=== PATIENT | female | born 1975 | race Caucasian/White ===

== ENCOUNTER 2016-05-28 17:13 | Emergency (ER) | payer BC, OTHER ==
[~2016-05-28] VITALS: Ht 157.5 cm; Wt 66.5 kg
[2016-05-28 17:25] VITALS: Ht 157.5 cm; Wt 66.5 kg
[2016-05-28] MEDS ORDERED: SOD CHLORIDE 0.9% 1,000 ML IV ONE (19:30)
[2016-05-28 19:50] LABS: BASOPHILS % 0.3 % (0.0-2.0); EOSINOPHILS % 0.5 % (0.0-7.0); HEMOGLOBIN 10.9 g/dl (12.0-16.0); LYMPHOCYTES # 1.1 10^3/ul (0.8-2.9); LYMPHOCYTES % 13.6 % (15.0-51.0); MEAN CORPUSCULAR VOLUME 78.8 fl (82.0-101.0); MEAN PLATELET VOLUME 7.8 fl (7.4-10.4); MONOCYTE # 0.5 10^3/ul (0.3-0.9); MONOCYTES % 5.7 % (0.0-11.0); NEUTROPHIL # 6.7 10^3/ul (1.6-7.5); NEUTROPHILS % 79.9 % (39.0-77.0); PLATELET COUNT 310 10^3/UL (140-440); RED BLOOD COUNT 4.18 10^6/ul (4.20-5.40); RED CELL DISTRIBUTION WIDTH 17.2 % (11.5-14.5); UNCORRECTED WBC 8.4 10^3/ul (4.8-10.8); WHITE BLOOD COUNT 8.4 10^3/ul (4.8-10.8)
[2016-05-28 19:53] LABS: ADD UMIC YES; URINE BILIRUBIN (Dip) 1+ (NEGATIVE); URINE BLOOD (Dip) NEGATIVE (NEGATIVE); URINE COLOR YELLOW (YELLOW); URINE GLUCOSE (Dip) NEGATIVE (NEGATIVE); URINE KETONES (Dip) NEGATIVE (NEGATIVE); URINE LEUKOCYTE ESTERASE (Dip) TRACE (NEGATIVE); URINE NITRITE (Dip) POSITIVE (NEGATIVE); URINE TOTAL PROTEIN (Dip) NEGATIVE (NEGATIVE); URINE UROBILINOGEN (Dip) 2.0 E.U./dL (0.1-1.0)
[2016-05-28 19:53] LABS: CONDITION 1; LH ANALYZER COMMENTS 1
[2016-05-28 19:56] LABS: ALBUMIN 3.9 g/dl (3.3-4.9)
[2016-05-28 19:57] LABS: INR 0.9; PROTIME 12.1 Sec (12.2-14.2); PT RATIO 0.9
[2016-05-28 19:57] LABS: POTASSIUM 3.9 mmol/L (3.5-5.1)
[2016-05-28 19:58] LABS: CREATININE 0.39 mg/dl (0.44-1.00)
[2016-05-28 19:58] LABS: PARTIAL THROMBOPLASTIN TIME 30.7 Sec (25.0-35.0)
[2016-05-28 19:59] LABS: ALBUMIN/GLOBULIN RATIO 1.02; BILIRUBIN,INDIRECT 0.2 mg/dl (0-1.1); BILIRUBIN,TOTAL 0.2 mg/dl (0.2-1.3); TOTAL PROTEIN 7.7 g/dl (6.1-8.1)
[2016-05-28 20:00] LABS: CALCIUM 8.8 mg/dl (8.4-10.2)
--- NOTE | 2016-05-28 20:04 | RADRPT ---
PROCEDURE: US OB CLINICAL INDICATION: abd pain/ TECHNIQUE: Multiple sonographic images of the pelvis were obtained. The images were reviewed on a PACS workstation. COMPARISON: None FINDINGS: The cervix is closed with a length of 5.41 cm. There is a single viable intrauterine gestation. Cardiac activity is present with 150 beats per minute. There is a variable presentation. The placenta is fundal. There is no evidence for an abruption or placenta previa. There is a normal amount of amniotic fluid with a maximum vertical pocket of 4.8 cm. Measurements were made in order to determine age. The results are as follows (cm): BPD =4.73 HC =0.40 AC =15.92 FL =3.36 Estimated gestational age by ultrasound of approximately 20 weeks, 2 days. The estimated date of delivery by ultrasound is 10/13/2016. EFW = 366 grams IMPRESSION: Single viable intrauterine gestation of approximately 20 weeks, 2 days . The estimated date of delivery is 10/13/2016 . Fundal placenta without evidence for an abruption or previa. RPTAT: EE Physician Sarika Date Time Electronically viewed and signed by Physician Sarika on 05/28/2016 20:04 /
--- NOTE | 2016-05-28 20:05 | RADRPT ---
PROCEDURE: Right Upper Quadrant Ultrasound. CLINICAL INDICATION: w/ abdominal pain TECHNIQUE: Multiple real-time images were acquired of the patient's right upper quadrant abdomen a nd retroperitoneum utilizing a high resolution transducer. COMPARISON: None FINDINGS: The liver measures 14.4 cm, and demonstrates moderately increased echogenicity. The main portal vein is patent with proper directional flow. There is no intrahepatic biliary ductal dilatation. The ext rahepatic common bile duct measures 4 mm. The gallbladder is without stones, wall thickening, or pericholecystic fluid. The visualized pancreas is unremarkable. The right kidney measures 11.0 cm and demonstrates normal echotexture. There is no right renal calcu pedro or hydronephrosis. The visualized abdominal aorta and IVC are grossly unremarkable. IMPRESSION: Moderate fatty infiltration of the liver. No cholelithiasis or acute cholecystitis. Normal CBD. RPTAT: EE Physician Sarika Date Time Electronically viewed and signed by Physician Sarika on 05/28/2016 20:05 /
[2016-05-28 20:09] LABS: BACTERIA,URINE MANY; ICTOTEST POSITIVE (NEGATIVE); SQUAMOUS EPITHELIAL CELL,UR FEW; URINE RBCS 0-2 /HPF (0)
[2016-05-28 20:24] LABS: BENZODIAZEPINES Negative (NEGATIVE)
[2016-05-28 20:25] LABS: BARBITURATES Negative (NEGATIVE)
[2016-05-28] MEDS ORDERED: morphine 4 MG/ML VIAL IV STA (20:32)
[2016-05-28 20:46] LABS: CANNABINOIDS Negative (NEGATIVE); COCAINE Negative (NEGATIVE); OPIATES Negative (NEGATIVE)
[2016-05-28 21:16] LABS: CHOL/HDL RATIO 4.2 RATIO
--- NOTE | 2016-05-28 21:23 | ERA ---
ER Documentation Chief Complaint Date/Time DATE: 05/28/16 TIME: 21:22 Chief Complaint right upper abdominal pain x 2 months, dx gallstones 19wks HPI 40-year-old female , less than 0. 9/06/20 ambulatory to the ED complaining of a several day history of worsening, sharp and crampy, epigastric pain which radiates to the back. She was admitted 2 weeks ago to [facility] for pancreatitis presumably secondary to cholelithiasis. Nausea but no vomiting, diarrhea or constipation. No hematemesis or hematochezia. Denies vaginal bleeding or discharge. No dysuria, polyuria, hematuria or flank pain. No chest pain or palpitations. No shortness of breath or cough. No fevers or chills. ROS All systems reviewed and are negative except as per history of present illness. Medications Home Meds Reported Medications Multivit/Min/Fol Ac/Iron/Pren* ( S*) 1 Tab Tab, 1 TAB PO DAILY, TAB 05/28/16 Allergies Allergies: Coded Allergies: Penicillins (Verified Allergy, Unknown, Hives, 05/28/16) hives Sulfa (Sulfonamide Antibiotics) (Verified Allergy, Unknown, Hives, 05/28/16 ) Hives amoxicillin (Verified Allergy, Unknown, Rash, 05/28/16) rash cefaclor (Verified Allergy, Unknown, Rash, 05/28/16) Rash PMhx/Soc Reviewed in chart. As per HPI. History of Surgery: Yes (leep 2006) Hx Miscellaneous Medical Probl: Yes (gallstones and pancreatitis) Hx Alcohol Use: No Hx Substance Use: No Hx Tobacco Use: No Smoking Status: Never smoker FmHx No stroke or cancer Physical Exam Vitals Vital Signs Date Time Temp Pulse Resp B/P Pulse Ox O2 Delivery O2 Flow Rate FiO2 05/29/16 00:55 97.8 84 18 124/76 96 Room Air 05/28/16 23:55 89 16 116/68 98 Room Air 05/28/16 17:25 98.3 100 20 121/68 98 Physical Exam Const: Alert, moderate distress due to pain. Head: Atraumatic Eyes: Normal Conjunctiva ENT: Normal External Ears, Nose and Mouth. Neck: Full range of motion..~ No meningismus. Resp: Clear to auscultation bilaterally Cardio: Regular rate and rhythm, no murmurs Abd: Soft, gravid. Epigastric tenderness. No rebound or guarding. Negative Viera sign. Skin: No petechiae or rashes Back: No midline or flank tenderness Ext: No cyanosis, or edema Neur: Awake and alert. No focal deficit observed. Psych: Normal Mood and Affect Result Diagram: 05/28/16193605/28/161936 Results 24 hrs Laboratory Tests Test 05/28/16 19:35 05/28/16 19:37 05/28/16 19:53 Activated Partial Thromboplast Time 30.7Sec INR International Normalized Ratio 0.90 Prothrombin Time 12.1Sec Prothrombin Time Ratio 0.9 Urine Bacteria MANY Urine Bilirubin 1+ Urine Clarity CLEAR Urine Color YELLOW Urine Glucose NEGATIVE% Urine Hemoglobin NEGATIVE Urine Ictotest POSITIVE Urine Ketones NEGATIVE Urine Leukocyte Esterase TRACE Urine Microscopic RBC 0-2/HPF Urine Microscopic WBC 25-50/HPF Urine Nitrite POSITIVE Urine Specific [place] 1.025 Urine Squamous Epithelial Cells FEW Urine Total Protein NEGATIVE Urine Urobilinogen 2.0 E.U./dL Urine pH 6.5 Alanine Aminotransferase (ALT/SGPT) 66IU/L Albumin 3.9g/dl Albumin/Globulin Ratio 1.02 Alkaline Phosphatase 211IU/L Anion Gap 16 Aspartate Amino Transf (AST/SGOT) 135IU/L Basophils # 0.010^3/ul Basophils % 0.3% Beta HCG, Quantitative 15361.0mIU/ml Blood Morphology Comment Blood Urea Nitrogen 6mg/dl Calcium Level 8.8mg/dl Carbon Dioxide Level 25mmol/L Chloride Level 102mmol/L Cholesterol Level 219mg/dl Cholesterol/HDL Ratio 4.2RATIO Creatinine 0.39mg/dl Direct Bilirubin 0.00mg/dl Eosinophils # 0.010^3/ul Eosinophils % 0.5% Globulin 3.80g/dl Glucose Level 97mg/dl HDL Cholesterol 52mg/dl Hematocrit 33.0% Hemoglobin 10.9g/dl Indirect Bilirubin 0.2mg/dl LDL Cholesterol, Calculated 132mg/dl Lipase 85505R/L Lymphocytes # 1.110^3/ul Lymphocytes % 13.6% Mean Corpuscular Hemoglobin 26.0pg Mean Corpuscular Hemoglobin Concent 33.0g/dl Mean Corpuscular Volume 78.8fl Mean Platelet Volume 7.8fl Monocytes # 0.510^3/ul Monocytes % 5.7% Neutrophils # 6.710^3/ul Neutrophils % 79.9% Nucleated Red Blood Cells # 0.010^3/ul Nucleated Red Blood Cells % 0.0/100WBC Platelet Count 62054^3/UL Potassium Level 3.9mmol/L Red Blood Count 4.1810^6/ul Red Cell Distribution Width 17.2% Sodium Level 139mmol/L Total Bilirubin 0.2mg/dl Total Protein 7.7g/dl Triglycerides Level 173mg/dl White Blood Count 8.410^3/ul Urine Amphetamines Screen Negative Urine Barbiturates Negative Urine Benzodiazepines Screen Negative Urine Cannabinoids Negative Urine Cocaine Screen Negative Urine Opiates Screen Negative Current Medications Medications (Trade) Dose Ordered Sig/Amadeo Route PRN Reason Start Time Stop Time Status Last Admin Dose Admin Sodium Chloride (NS) 1,000 ml @ 1,000 mls/hr Q1H ONCE IV 05/28/16 19:30 05/28/16 20:29 DC 05/28/16 19:40 Morphine Sulfate 4 mg 4 mg ONCE STAT IV 05/28/16 20:32 05/28/16 20:33 DC 05/28/16 20:51 Sodium Chloride (NS) 1,000 ml @ 500 mls/hr Q2H STAT IV 05/28/16 23:10 05/29/16 01:00 DC 05/28/16 23:22 Morphine Sulfate 4 mg 4 mg ONCE ONCE IV 05/28/16 23:10 05/28/16 23:17 DC 05/28/16 23:22 Aztreonam (Azactam 1gm/NS (Pmx)) 50 ml @ 100 mls/hr ONCE ONCE IVPB 05/28/16 23:30 05/28/16 23:59 DC 05/28/16 23:52 Morphine Sulfate (morphine) 4 mg ONCE ONCE IV 05/29/16 00:34 05/29/16 00:35 DC 05/29/16 00:46 IMAGING: PROCEDURE: Right Upper Quadrant Ultrasound. CLINICAL INDICATION: w/ abdominal pain TECHNIQUE: Multiple real-time images were acquired of the patient's right upper quadrant abdomen and retroperitoneum utilizing a high resolution transducer. COMPARISON: None FINDINGS: The liver measures 14.4 cm, and demonstrates moderately increased echogenicity. The main portal vein is patent with proper directional flow. There is no intrahepatic biliary ductal dilatation. The extrahepatic common bile duct measures 4 mm. The gallbladder is without stones, wall thickening, or pericholecystic fluid. The visualized pancreas is unremarkable. The right kidney measures 11.0 cm and demonstrates normal echotexture. There is no right renal calculus or hydronephrosis. The visualized abdominal aorta and IVC are grossly unremarkable. IMPRESSION: Moderate fatty infiltration of the liver. No cholelithiasis or acute cholecystitis. Normal CBD. RPTAT: EE Physician Sarika Date Time Electronically viewed and signed by Physician Sarika on 05/28/2016 20:05 RA/ PROCEDURE: US OB CLINICAL INDICATION: abd pain/ TECHNIQUE: Multiple sonographic images of the pelvis were obtained. The images were reviewed on a PACS workstation. COMPARISON: None FINDINGS: The cervix is closed with a length of 5.41 cm. There is a single viable intrauterine gestation. Cardiac activity is present with 150 beats per minute. There is a variable presentation. The placenta is fundal. There is no evidence for an abruption or placenta previa. There is a normal amount of amniotic fluid with a maximum vertical pocket of 4.8 cm. Measurements were made in order to determine age. The results are as follows (cm): BPD = 4.73 HC = 0.40 AC = 15.92 FL = 3.36 Estimated gestational age by ultrasound of approximately 20 weeks, 2 days. The estimated date of delivery by ultrasound is 10/13/2016. EFW = 366 grams IMPRESSION: Single viable intrauterine gestation of approximately 20 weeks, 2 days . The estimated date of delivery is 10/13/2016 . Fundal placenta without evidence for an abruption or previa. RPTAT: EE Physician Sarika Date Time Electronically viewed and signed by Physician Sarika on 05/28/2016 20:04 RA/ Procedures/MDM DOCUMENTS REVIEWED: ED nurse, no prior records available MEDICAL DECISION MAKIN-year-old female , less than 0. 9/06/20 ambulatory to the ED complaining of a several day history of worsening, sharp and crampy, epigastric pain which radiates to the back. Significantly elevated lipase consistent with pancreatitis. Ultrasound is negative for cholelithiasis or cholecystitis. Lipid profile unremarkable. 20 week viable IUP by ultrasound. Urinalysis consistent with urinary tract infection, antibiotics given pending cultures. Counseled patient and family regarding diagnosis, diagnostic results and plan for admission. CALLS/CONSULTS: Time 23:00, Dr. Luna, does not feel comfortable transferring the patient to [facility] but subsequently accepted the patient. Final confirmation is pending Departure Diagnosis: Primary Impression: Acute pancreatitis Qualified Code: K85.90 - Acute pancreatitis, unspecified complication status, unspecified pancreatitis type Additional Impressions: state, incidental Acute generalized abdominal pain UTI (urinary tract infection) Qualified Code: N39.0 - Urinary tract infection without hematuria, site unspecified Condition: Serious HORTENCIA PERLA MD May 28, 2016 21:23
[2016-05-28] MEDS ORDERED: PRENAT PO (22:30)
[2016-05-28] MEDS ORDERED: morphine 4 MG/ML VIAL IV ONE (23:10)
[2016-05-28] MEDS ORDERED: SOD CHLORIDE 0.9% 1,000 ML IV STA (23:10)
[2016-05-28] MEDS ORDERED: AZTREONAM 1 GM/NS (PMX) 50 ML IVPB ONE (23:30)
[2016-05-29] MEDS ORDERED: morphine 4 MG/ML VIAL IV ONE (00:34)
[2016-05-29 00:55] VITALS: BP 124/76; PULSE 84; RESP 18; TEMP 97.8
== END 2016-05-29 00:50 | disposition short-term general hospital (02) ==
LOC: FTE 17:13 → E/R 05-29 00:50
DX: K85.90 Acute pancreatitis without necrosis or infection, unspecified (principal); R10.84 Generalized abdominal pain; N39.0 Urinary tract infection, site not specified; Z33.1 Pregnant state, incidental
CPT/HCPCS: 76705; 76805; 80053; 80061; 80307; 81001; 83690; 84702; 85025; 85610; 85730; 86900; 86901; 87086; J2270; J7030; Z7610; 36415; 81003; 96374; 96375; 96376

== ENCOUNTER 2016-08-31 22:59 | Outpatient (CLI) | payer BC ==
[~2016-08-31] VITALS: Ht 152.4 cm; Wt 67.9 kg
[~2016-08-31 22:59] MED LIST: PRENAT PO
[2016-08-31 23:12] VITALS: BP 117/59; PULSE 112; Ht 152.4 cm; Wt 67.9 kg
--- NOTE | 2016-09-01 00:08 | RADRPT ---
PROCEDURE: OB ultrasound for biophysical profile CLINICAL INDICATION: Biophysical profile. . TECHNIQUE: Multiple sonographic images of the pelvis were obtained. Transabdominal views are obta ined. COMPARISON: 05/28/2016 FINDINGS: Single intrauterine gestation. Presentation: Breech Placenta: Anterior. No evidence of placental abruption. No evidence of placenta previa. breathing movement = 2/2 tone = 2/2 motion = 2/2 TAWNYA = 2/2 TAWNYA = 17.9 cm heart rate: 138 beats per minute IMPRESSION: Single intrauterine gestation. Biophysical profile 12/10 Presentation: Breech RPTAT: AADD .José Zapata MD, MD Date Time Electronically viewed and signed by .José Zapata MD, on 09/01/2016 00:08 .B/
[2016-09-01 00:24] LABS: BARBITURATES NEGATIVE (NEGATIVE); BENZODIAZEPINES NEGATIVE (NEGATIVE); CANNABINOIDS NEGATIVE (NEGATIVE); COCAINE NEGATIVE (NEGATIVE); OPIATES NEGATIVE (NEGATIVE)
[2016-09-01] MEDS ORDERED: TERBUTALINE 1 MG/ML INJ SC PRN (00:50)
--- NOTE | 2016-09-01 03:39 | QN ---
Documentation Comment Laborist ER panel pt ( went to [facility] for a bit but then had a problem with her MediCal) 41 y.o. with an IUP at 34w2d who had a fall in her shower at home. Pt reports that as she slipped, grabbed the handicap railing that helped to break her fall. No leaking or bleeding. She reports some pelvic pain as well but it has been present as a constant for quite some time in her , i.e. it is not new. PMHx: none. PSHx: cholecystectomy 05/2016. POBHx: x 12; 5 were . All: PCN. Amoxicillin. Sulfa. Ceclor. 117/59 T=98.3 NST: baseline 130-140 bpm with accels to 200 bpm. No decels. UC's initially q5- 9 minutes. After one dose of terbutaline they stopped. Drug screen: negative. BPP 8/8 BREECH TAWNYA 17.9 Anterior placenta w/o previa. A: IUP at 34w2d. S/P fall. P: D/C home. LANNY MCCORD MD Sep 01, 2016 03:38
--- NOTE | 2016-09-01 04:14 | TRIAGE ---
OB Triage Datetime Report Generated by CPN: 09/01/2016 04:14 Datetime: 09/01/2016 03:20 Stage of : OB Triage Pain Assessment Pain Scale: 2 Pain Presence: Constant Pain Type: Pressure Pain Location: LOWER PELVIS Pain Goal: 0 Datetime: 09/01/2016 02:59 Stage of : OB Triage Labor Evaluation Frequency: x0 Monitor Mode: External Duration (sec)2399: x0 Resting [place]: Relaxed Heart Rate FHR Baseline Rate: 145 Monitor Mode: External US Variability: Moderate 6-25 bpm Accelerations: 15X15 Decelerations: None Category: Category I Datetime: 09/01/2016 02:45 Stage of : OB Triage Datetime: 09/01/2016 02:00 Stage of : OB Triage Labor Evaluation Frequency: 3-9 Monitor Mode: External Duration (sec)2399: 30-60 Quality: Mild Pattern: Normal: <= 5 Contractions in 10 Minutes Resting [place]: Relaxed Heart Rate FHR Baseline Rate: 135 Monitor Mode: External US Variability: Moderate 6-25 bpm Accelerations: 15X15 Decelerations: None Category: Category I Datetime: 09/01/2016 00:57 Stage of : OB Triage Datetime: 09/01/2016 00:55 Stage of : OB Triage Datetime: 09/01/2016 00:45 Stage of : OB Triage Datetime: 09/01/2016 00:37 Stage of : OB Triage Labor Evaluation Frequency: 10-12 Monitor Mode: External Duration (sec)2399: 40-70 Quality: Mild Pattern: Normal: <= 5 Contractions in 10 Minutes Resting [place]: Relaxed Heart Rate FHR Baseline Rate: 145 Monitor Mode: External US Variability: Moderate 6-25 bpm Accelerations: 15X15 Decelerations: None Category: Category I Datetime: 09/01/2016 00:15 Vaginal Exam Dilatation (cms): 0.0 Effacement (%): 0 Station: -3 Exam By: Rai BOCANEGRA Vaginal Bleeding: None Datetime: 09/01/2016 00:09 Contraction Comments: TOCO REPLACED Datetime: 08/31/2016 23:40 Stage of : OB Triage Datetime: 08/31/2016 23:30 Stage of : OB Triage Labor Evaluation Frequency: 4-7 Monitor Mode: External Duration (sec)2399: 40-70 Quality: Mild Pattern: Normal: <= 5 Contractions in 10 Minutes Resting [place]: Relaxed Contraction Comments: ABDOMEN SOFT ON PALPATION Heart Rate FHR Baseline Rate: 135 Monitor Mode: External US Variability: Moderate 6-25 bpm Accelerations: 15X15 Decelerations: None Category: Category I Comments: PT REPORTED MOVEMENT Datetime: 08/31/2016 23:16 Time of Arrival: 08/31/2016 22:50 EGA: 34.1 Arrived By: Wheelchair Arrived From: Emergency Dept Chief Complaint: [id number] S/P FALL Movement: Present Contractions: Occasional Time Contractions Began: 08/31/2016 22:50 Contractions: 5-9 Rupture of Membranes: Denies Vaginal Bleeding: None Vaginal Discharge: Denies Recent Sexual Intercouse: Denies Abdominal Trauma: Fall Patient Complaints: Other Additional Patient Complaints: 12/12 PELVIC PAIN THAT STARTED LAST WEEK Time Provider Notified: 08/31/2016 23:08 Provider Notified: DR. MCCORD Initial Plan: EFM X2, U/S BPP AND PLACENTA, URINE DRUG SCREEN, _ SVE Datetime: 08/31/2016 23:08 Stage of : OB Triage Datetime: 08/31/2016 23:05 Stage of : OB Triage Assessment Type: Triage Maternal Assessment Level of Consciousness: Fully Conscious DTR's/Clonus: DTRs 2+; No Clonus Headache: Denies Blurred Vision: No Respiratory Effort: Unlabored; Regular Rhythm; Equal Expansion Breath Sounds, Left: Clear and Equal Breath Sounds, Right: Clear and Equal Nausea/Vomiting: Denies RUQ Epigastric Pain: Denies Lower Extremities Edema: None Degree: None Upper Extremities Edema: None Degree: None Facial Edema: None Temperature Route: Oral Fall Risk Assessment History of Falling: (25) Yes Secondary Diagnosis: (0) No Ambulatory Aid: (0) Bedrest/Nurse Assist IV Therapy: (0) No Gait: (0) Normal/Bedrest/Immobile Mental Status: (0) Oriented to Own Ability Fall Score: 25 Fall Risk Score Definition: Low Risk: Please see standard fall prevention interventions Pain Assessment Pain Scale: 8 Pain Presence: Constant Pain Type: Ache Pain Location: Abdomen (Annotations: LOWER PELVIC PAIN) Pain Goal: 0 Pain Relief Measures: Comfort Measures Datetime: 08/31/2016 23:01 Stage of : OB Triage Contraction Comments: APPLIED Monitor Mode: External US Comments: APPLIED
== END 2016-09-01 03:39 | disposition home or self-care (01) ==
LOC: OBT 22:59 → L-D 23:01 → OBT 09-01 03:39
PROVIDERS: ATTEND Obstetrics & Gynecology
DX: O9A.213 Injury, poisoning and certain other consequences of external causes complicating pregnancy, third trimester (principal); R10.2 Pelvic and perineal pain; W01.0XXA Fall on same level from slipping, tripping and stumbling without subsequent striking against object, initial encounter; Y92.002 Bathroom of unspecified non-institutional (private) residence as the place of occurrence of the external cause; Z3A.34 34 weeks gestation of pregnancy
CPT/HCPCS: 76815; 76818; 80307; 96372; J3105; Z7500; G0463

== ENCOUNTER 2016-09-01 21:15 | Outpatient (CLI) | payer BC ==
[~2016-09-01] VITALS: Ht 152.4 cm; Wt 68.4 kg
[2016-09-01 21:25] VITALS: Ht 152.4 cm; Wt 68.4 kg
[2016-09-01 21:26] VITALS: BP 112/70; PULSE 111; RESP 18
--- NOTE | 2016-09-01 22:02 | HP ---
Date/Time of Note Date/Time of Note DATE: 09/01/16 TIME: 21:58 OB - History Hx of Present Free Text/Dictation 41 YO who obtains PNC at [facility] in [place]. 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 she reports decreased FM. she was evaluated at our L&D yesterday after she fell in shower. yesterday she had BPP 8 / 8. NST is category one today and baby starting to move well Care: Limited Care Obstetrical Complications: None Medical Complications: None Past Family/Social History * Past Medical, Surgical, Family and Obstetric Histories reviewed from chart. OB Admission Exam Vital Signs Vital Signs Vital Signs Date Time Temp Pulse Resp B/P Pulse Ox O2 Delivery O2 Flow Rate FiO2 09/01/16 21:26 98.5 111 18 112/70 Room Air Physical Exam HEENT: WNL Heart: Rhythm Normal Lungs: Clear, Equal Abdomen: WNL Extremities: Normal Reflexes: Normal OB Assessment/Plan Other Assessment: decreased movement. had normal TAWNYA yesterday and NST is category one Other plan: may be discharged home. FKC given PAGE STUBBS MD Sep 01, 2016 22:02
--- NOTE | 2016-09-01 22:15 | TRIAGE ---
OB Triage Datetime Report Generated by CPN: 09/01/2016 22:15 Datetime: 09/01/2016 21:24 Time of Arrival: 09/01/2016 21:14 EGA: 34.2 Arrived By: Wheelchair Arrived From: Home Chief Complaint: DFM Movement: Decreased Contractions: Denies/Absent Rupture of Membranes: Denies Vaginal Discharge: Denies Recent Sexual Intercouse: Denies Abdominal Trauma: Fall Patient Complaints: Other Time Provider Notified: 09/01/2016 21:45 Provider Notified: Iona Initial Plan: CRISTINA
== END 2016-09-01 23:13 | disposition home or self-care (01) ==
LOC: OBT 21:15 → L-D 21:16 → OBT 23:13
PROVIDERS: ATTEND Specialist
DX: O36.8130 Decreased fetal movements, third trimester, not applicable or unspecified (principal); O09.523 Supervision of elderly multigravida, third trimester; Z3A.34 34 weeks gestation of pregnancy; Z91.81 History of falling
CPT/HCPCS: G0463

== ENCOUNTER 2016-09-05 17:02 | Outpatient (CLI) | payer BC ==
[~2016-09-05] VITALS: Ht 152.4 cm; Wt 69.3 kg
[2016-09-05 17:18] VITALS: BP 119/63; PULSE 112
--- NOTE | 2016-09-05 18:09 | RADRPT ---
PROCEDURE: US OB biophysical profile. CLINICAL INDICATION: evaluation TECHNIQUE: Multiple sonographic images of the pelvis were obtained. The images were reviewed on a PACS workstation. COMPARISON: Obstetrical ultrasound from 08/31/2016 FINDINGS: There is a single viable intrauterine gestation. Cardiac activity is present with 143 beats per min stephanie. There is a breech presentation. The placenta is fundal in location. There is no evidence of placental abruption. There is a normal amount of amniotic fluid with an TAWNYA = 16.3 cm. Biophysical profile: movement 2/2 tone 2/2. breathing 2/2 TAWNYA 2/2 Total 12/10 RPTAT: AA . IMPRESSION: Normal biophysical profile. Breech presentation. Physician Sarika Date Time Electronically viewed and signed by Physician Sarika on 09/05/2016 18:09 /
[2016-09-05 18:47] LABS: ADD UMIC YES; URINE BILIRUBIN (Dip) NEGATIVE (NEGATIVE); URINE BLOOD (Dip) NEGATIVE (NEGATIVE); URINE COLOR LT. YELLOW (YELLOW); URINE GLUCOSE (Dip) NEGATIVE (NEGATIVE); URINE KETONES (Dip) NEGATIVE (NEGATIVE); URINE LEUKOCYTE ESTERASE (Dip) TRACE (NEGATIVE); URINE NITRITE (Dip) NEGATIVE (NEGATIVE); URINE TOTAL PROTEIN (Dip) NEGATIVE (NEGATIVE); URINE UROBILINOGEN (Dip) 1.0 E.U./dL (0.1-1.0)
[2016-09-05 19:14] LABS: SQUAMOUS EPITHELIAL CELL,UR OCCASIONAL; URINE RBCS 0-2 /HPF (0)
[2016-09-05 19:28] LABS: BARBITURATES NEGATIVE (NEGATIVE); BENZODIAZEPINES NEGATIVE (NEGATIVE); CANNABINOIDS NEGATIVE (NEGATIVE); COCAINE NEGATIVE (NEGATIVE)
[2016-09-05 19:53] LABS: OPIATES NEGATIVE (NEGATIVE)
--- NOTE | 2016-09-05 20:52 | QN ---
Documentation Comment Laborist ER panel pt 41 y.o. with an IUP at 34w 6d c/o discharge and right-sided pain. Pt has had spotty MediCal as apparently her provider keeps changing. She has an appt tomorow at a clinic in [place]. No VB. No leaking. +FM. Pt does not want any more children and would like a BTL. Pt states her baby has been BREECH since her first US. Pt is living in a motel at present. PMHx:none. PSHx: none. POBHx: x12. All: Amoxicillin. Sulfa. Ceclor. BP 119/63 T=98.3 CX th/cl BPP 8/8 TAWNYA 16.3 BREECH U/A negqative. NST:baseline 130 bpm with accels to 160 bpm. No decels. Occasional UC's. A: IUP at 34w 6d. False Labor. P: D/C home. Pt instructed to make her appt tomorrow and to sign a BTL consent and be sure to get multiple copies. Advised pt that the baby is still BREECH and she may end up needing a C/S. LANNY MCCORD MD September 05, 2016 20:51
--- NOTE | 2016-09-05 23:21 | TRIAGE ---
OB Triage Datetime Report Generated by CPN: 09/05/2016 23:20 Datetime: 09/05/2016 20:23 Stage of : OB Triage Datetime: 09/05/2016 20:05 Labor Evaluation Frequency: 0 Monitor Mode: External Heart Rate FHR Baseline Rate: 135 Monitor Mode: External US FHR Baseline Changes: No Baseline Change Variability: Moderate 6-25 bpm Accelerations: 15X15 Decelerations: None Category: Category I Datetime: 09/05/2016 20:02 Comments: moniror not working changed to new monitor Datetime: 09/05/2016 19:22 Assessment Type: Triage Maternal Assessment Level of Consciousness: Fully Conscious DTR's/Clonus: DTRs 2+; No Clonus Headache: Denies Blurred Vision: No Respiratory Effort: Unlabored; Regular Rhythm; Equal Expansion Breath Sounds, Left: Clear and Equal Breath Sounds, Right: Clear and Equal Nausea/Vomiting: Denies RUQ Epigastric Pain: Denies Lower Extremities Edema: None Degree: None Upper Extremities Edema: None Degree: None Facial Edema: None Fall Risk Assessment History of Falling: (0) No Secondary Diagnosis: (0) No Ambulatory Aid: (0) Bedrest/Nurse Assist IV Therapy: (0) No Gait: (0) Normal/Bedrest/Immobile Mental Status: (0) Oriented to Own Ability Fall Score: 0 Fall Risk Score Definition: No Risk: No action required Datetime: 09/05/2016 18:13 Labor Evaluation Frequency: OCCAS Monitor Mode: External Duration (sec)2399: 50-60 Resting Tone Peterson: Relaxed Heart Rate FHR Baseline Rate: 135 Monitor Mode: External US Variability: Moderate 6-25 bpm Accelerations: 10X10 Decelerations: None Category: Category I Pain Assessment Pain Scale: 0 Pain Presence: None/Denies Pain Type: N/A Pain Location: Abdomen Pain Goal: 3 Pain Relief Measures: Comfort Measures Datetime: 09/05/2016 17:34 Vaginal Exam Dilatation (cms): 0.0 Exam By: DR FOROOHAR Vaginal Bleeding: None Cervix, Consistency: Soft Cervix, Position: Posterior Presentation 'A': Cephalic Datetime: 09/05/2016 17:27 Stage of : OB Triage Datetime: 09/05/2016 17:11 Stage of : OB Triage Assessment Type: Triage Maternal Assessment Level of Consciousness: Fully Conscious DTR's/Clonus: DTRs 2+; No Clonus Headache: Denies Blurred Vision: No Respiratory Effort: Unlabored; Regular Rhythm; Equal Expansion Breath Sounds, Left: Clear and Equal Breath Sounds, Right: Clear and Equal Nausea/Vomiting: Denies RUQ Epigastric Pain: Denies Facial Edema: None Temperature Route: Axillary Fall Risk Assessment History of Falling: (0) No Secondary Diagnosis: (0) No Ambulatory Aid: (0) Bedrest/Nurse Assist IV Therapy: (0) No Gait: (0) Normal/Bedrest/Immobile Mental Status: (0) Oriented to Own Ability Fall Score: 0 Fall Risk Score Definition: No Risk: No action required Labor Evaluation Frequency: 0 Monitor Mode: External Resting Tone Peterson: Relaxed Heart Rate FHR Baseline Rate: 135 Monitor Mode: External US Variability: Moderate 6-25 bpm Accelerations: 10X10 Decelerations: None Category: Category I Pain Assessment Pain Scale: 6 Pain Presence: Intermittent Pain Type: Cramping Pain Location: Abdomen (Annotations: RT SIDE) Pain Goal: 3 Pain Relief Measures: Comfort Measures Datetime: 09/05/2016 17:06 Time of Arrival: 09/05/2016 16:50 EGA: 34.6 Arrived By: Ambulatory Arrived From: Home Chief Complaint: C/O MUCUS DISCHARGE , AND PAIN THAT COMES FOR A BIT AND THEN LEAVES, DENIES BLEE DING OR LEAKING OF FLUID Movement: Decreased Contractions: Occasional Rupture of Membranes: Denies Vaginal Bleeding: None Vaginal Discharge: Present Recent Sexual Intercouse: Denies Abdominal Trauma: Not Applicable Patient Complaints: Cramping Time Provider Notified: 09/05/2016 17:27 Provider Notified: [facility] Initial Plan: MONITOR, U/A, UDS, BPP/TAWNYA Datetime: 09/01/2016 21:54 Labor Evaluation Frequency: 0 Monitor Mode: External Duration (sec)2399: 0 Pattern: Normal: <= 5 Contractions in 10 Minutes Resting Tone Peterson: Relaxed Contraction Comments: uterine irritiability noted. pt denies feeling cramping or UC's. Heart Rate FHR Baseline Rate: 130 Monitor Mode: External US Variability: Moderate 6-25 bpm Accelerations: 15X15 Decelerations: None Category: Category I Pain Assessment Pain Scale: 0 Pain Presence: None/Denies Pain Type: N/A Pain Goal: 0 Datetime: 09/01/2016 21:24 EGA: 34.2 Datetime: 08/31/2016 23:16 EGA: 34.1 Datetime: 08/31/2016 23:05 Fall Score: 25 Fall Risk Score Definition: Low Risk: Please see standard fall prevention interventions
== END 2016-09-05 20:45 | disposition home or self-care (01) ==
LOC: L-D 17:02 → OBT 17:02
DX: O47.03 False labor before 37 completed weeks of gestation, third trimester (principal); O32.1XX0 Maternal care for breech presentation, not applicable or unspecified; O09.523 Supervision of elderly multigravida, third trimester; Z3A.34 34 weeks gestation of pregnancy
CPT/HCPCS: 76818; 80307; 81001; Z7500; 81003; G0463

== ENCOUNTER 2016-09-13 05:10 | Outpatient (CLI) | payer BC ==
[~2016-09-13] VITALS: Ht 152.4 cm; Wt 70.9 kg
[2016-09-13 05:58] VITALS: Ht 152.4 cm; Wt 70.9 kg
[2016-09-13 05:59] VITALS: BP 111/66; PULSE 125; RESP 18
[2016-09-13] MEDS ORDERED: ACETAMINOPHEN 325 MG TAB PO ONE (06:00)
--- NOTE | 2016-09-13 06:30 | RADRPT ---
PROCEDURE: ULTRASOUND OBSTETRICAL CLINICAL INDICATION: 41-year-old female for presentation. TECHNIQUE: Multiple sonographic images of the pelvis were obtained. The images were reviewed on a PACS workstation. COMPARISON: Ultrasound biophysical profile September 05, 2016. FINDINGS: There is a single viable intrauterine gestation. Cardiac activity is present with 166 beats per min stephanie. There is a breech presentation. The placenta is fundal. There is no evidence for an abruption o r placenta previa. IMPRESSION: Single viable intrauterine gestation with breech presentation. .Jayden Sanz MD, MD Date Time Electronically viewed and signed by .Jayden Sanz MD, on 09/13/2016 06:30 .M/
[2016-09-13] MEDS ORDERED: LACTATED RINGER'S 1,000 ML IV ONE (06:38)
--- NOTE | 2016-09-13 06:48 | PN ---
Date/Time of Note Date/Time of Note DATE: 09/13/16 TIME: 06:40 OB Subjective Subjective Subjective patient c/o headache for 3 days and abdominal pain, which is sharp every 10 min she was breech on her previous sono POB- x 12, one infant PMH- h/o marijuiana use, former smoker (quit 3 wks ago) PSH- denies Meds- denies All: penicillin, sulfua, cefaclor (rash) OB Objective Objective Objective VS: 111/66, 125, 18, 97.9 Abdomen- gravid, n/t SVE- l/c/p FHT- Cat I [place]- rare ctx Abdomen: WNL Accelerations: Accelerations Present Decelerations: No Decelerations Varibility: Moderate Contractions on Admission: >10 Minutes Apart OB Assessment/Plan Other Assessment: 41 yo P 12 @ 36 wks, scattered PNC, with headache and rare ctx - breech by sono - Cat I FHT Other plan: tylenol for headache will hydrate for pre-term ctx if cervix unchanged in 1 hr and headache improved, d/c home NAKITA MUNIZ MD September 13, 2016 06:48
[2016-09-13] MEDS ORDERED: LACTATED RINGER'S 1,000 ML IV SCH (07:00)
[2016-09-13 08:09] LABS: BARBITURATES NEGATIVE (NEGATIVE); BENZODIAZEPINES NEGATIVE (NEGATIVE); CANNABINOIDS NEGATIVE (NEGATIVE); COCAINE NEGATIVE (NEGATIVE); OPIATES NEGATIVE (NEGATIVE)
== END 2016-09-13 08:10 | disposition home or self-care (01) ==
LOC: OBT 05:10 → L-D 05:40 → OBT 08:10
PROVIDERS: ATTEND Obstetrics & Gynecology
DX: O26.893 Other specified pregnancy related conditions, third trimester (principal); R10.9 Unspecified abdominal pain; R51 Headache; O09.523 Supervision of elderly multigravida, third trimester; Z3A.36 36 weeks gestation of pregnancy
CPT/HCPCS: 36415; 76815; 80307; 96360; J7120; Z7500; Z7610; G0463

== ENCOUNTER 2016-11-18 07:19 | Emergency (ER) | payer BC ==
[~2016-11-18] VITALS: Wt 61.0 kg
[2016-11-18] MEDS ORDERED: ONDANSETRON 4 MG INJ IV STA (07:59)
[2016-11-18] MEDS ORDERED: FAMOTIDINE 20 MG INJ IV STA (07:59)
[2016-11-18] MEDS ORDERED: morphine 4 MG/ML VIAL IV STA (07:59)
--- NOTE | 2016-11-18 08:40 | ERD ---
ER Documentation Chief Complaint Date/Time DATE: 11/18/16 TIME: 08:38 Chief Complaint UPPER ABD PAIN FOR 1 WEEK WITH NAUSEA AND VOMITING. DIARRHEA. NO DYSURIA HPI Is a 41-year-old female who presents emergency department today complaining of severe upper abdominal pain that started this morning and possibly 1 hour prior to arrival. States she had diarrhea for a week and recently started taking Imodium yesterday. States that she has a history of pancreatitis. States that she had her gallbladder removed in May or June of this year. States she had a 1 month ago with the of her baby. States she has a family history of pancreatitis and her grandmother of pancreatic cancer. Denies any alcohol abuse. ROS All systems reviewed and are negative except as per history of present illness. Medications Home Meds Active Scripts Tramadol HCl (Tramadol HCl) 50 Mg Tablet, 50 MG PO Q4 Y for PAIN, #15 TAB Prov:WICHO HAMEED PA-C 11/18/16 Dicyclomine Hcl* (Bentyl*) 10 Mg Capsule, 10 MG PO QID, #30 CAP Prov:WICHO HAEMED PA-C 11/18/16 Ferrous Sulfate* (Ferrous Sulfate*) 325 Mg Tabec, 325 MG PO DAILY, #30 TAB Prov:WICHO HAMEED PA-C 11/18/16 Famotidine* (Pepcid*) 20 Mg Tablet, 20 MG PO BID for 14 Days, TAB Prov:WICHO HAMEED PA-C 11/18/16 Ondansetron Hcl* (Zofran*) 4 Mg Tablet, 4 MG PO Q6H for NAUSEA AND/OR VOMITING, #30 TAB Prov:WICHO HAMEED PA-C 11/18/16 Reported Medications Multivit/Min/Fol Ac/Iron/Pren* ( S*) 1 Tab Tab, 1 TAB PO DAILY, TAB 05/28/16 Allergies Allergies: Coded Allergies: Penicillins (Verified Allergy, Unknown, Hives, 09/13/16) hives Sulfa (Sulfonamide Antibiotics) (Verified Allergy, Unknown, Hives, 09/13/16 ) Hives amoxicillin (Verified Allergy, Unknown, Rash, 09/13/16) rash cefaclor (Verified Allergy, Unknown, Rash, 09/13/16) Rash PMhx/Soc History of Surgery: Yes (leep 2006, [place]) Hx Miscellaneous Medical Probl: No Hx Alcohol Use: No Hx Substance Use: No Hx Tobacco Use: No Smoking Status: Never smoker Physical Exam Vitals Vital Signs Date Time Temp Pulse Resp B/P Pulse Ox O2 Delivery O2 Flow Rate FiO2 11/18/16 07:21 97.8 69 20 138/75 100 Physical Exam Const: Mild distress Head: Atraumatic Eyes: Normal Conjunctiva ENT: Normal External Ears, Nose and Mouth. Neck: Full range of motion..~ No meningismus. Resp: Clear to auscultation bilaterally Cardio: Regular rate and rhythm, no murmurs Abd: Soft, epigastric tenderness non distended. Normal bowel sounds. No right upper quadrant pain. No lower abdominal pain. Skin: No petechiae or rashes Back: No midline or flank tenderness Neur: Awake and alert Psych: Normal Mood and Affect Result Diagram: 11/18/16 0815 11/18/16 0815 Results 24 hrs Laboratory Tests Test 11/18/16 08:15 11/18/16 08:35 White Blood Count 6.910^3/ul Red Blood Count 4.3410^6/ul Hemoglobin 8.9g/dl Hematocrit 31.6% Mean Corpuscular Volume 72.8fl Mean Corpuscular Hemoglobin 20.5pg Mean Corpuscular Hemoglobin Concent 28.2g/dl Red Cell Distribution Width 20.5% Platelet Count 61036^3/UL Mean Platelet Volume 9.2fl Neutrophils % 63.0% Band Neutrophils % 1.0% Lymphocytes % 28.0% Monocytes % 3.0% Eosinophils % 3.0% Basophils % 2.0% Neutrophils # 4.310^3/ul Lymphocytes # 1.910^3/ul Monocytes # 0.210^3/ul Eosinophils # 0.210^3/ul Basophils # 0.110^3/ul Hypochromasia 1+ Microcytosis 1+ Ovalocytes 1+ Sodium Level 145mmol/L Potassium Level 4.3mmol/L Chloride Level 105mmol/L Carbon Dioxide Level 27mmol/L Anion Gap 17 Blood Urea Nitrogen 12mg/dl Creatinine 0.53mg/dl Glucose Level 72mg/dl Calcium Level 8.8mg/dl Total Bilirubin 0.1mg/dl Direct Bilirubin 0.00mg/dl Indirect Bilirubin 0.1mg/dl Aspartate Amino Transf (AST/SGOT) 108IU/L Alanine Aminotransferase (ALT/SGPT) 84IU/L Alkaline Phosphatase 149IU/L Total Protein 7.0g/dl Albumin 4.4g/dl Globulin 2.60g/dl Albumin/Globulin Ratio 1.69 Lipase 98U/L Urine Color YELLOW Urine Clarity SLIGHTLY CLOUDY Urine pH 7.0 Urine Specific [place] 1.024 Urine Ketones NEGATIVEmg/dL Urine Nitrite NEGATIVEmg/dL Urine Bilirubin NEGATIVEmg/dL Urine Urobilinogen 1+mg/dL Urine Leukocyte Esterase NEGATIVELeu/ul Urine Microscopic RBC 1/HPF Urine Microscopic WBC 3/HPF Urine Amorphous Crystals FEW/HPF Urine Mucus FEW/HPF Urine Hemoglobin NEGATIVEmg/dL Urine Glucose NEGATIVEmg/dL Urine Total Protein NEGATIVEmg/dl Current Medications Medications (Trade) Dose Ordered Sig/Amadeo Route PRN Reason Start Time Stop Time Status Last Admin Dose Admin Morphine Sulfate (morphine) 6 mg ONCE STAT IV 11/18/16 07:59 11/18/16 08:03 DC 11/18/16 08:19 Ondansetron HCl (Zofran Inj) 4 mg ONCE STAT IV 11/18/16 07:59 11/18/16 08:03 DC 11/18/16 08:19 Famotidine (Pepcid Iv) 20 mg ONCE STAT IV 11/18/16 07:59 11/18/16 08:03 DC 11/18/16 08:19 DIAGNOSTIC IMAGING REPORT Patient: KLAUS WHARTON : 1975 Age: 41 Sex: F [id number] DOS: 11/18/16 0000 Ordering MD: WICHO HAMEED PA-C Location: E Room/Bed: PROCEDURE: US Abdomen (right upper quadrant). CLINICAL INDICATION: Abdominal and epigastric pain. History of previous cholecystectomy. TECHNIQUE: Multiple real-time longitudinal and transverse images of the right upper quadrant of the abdomen were acquired utilizing a curved array transducer. Images were reviewed on a high-resolution PACS workstation. COMPARISON: 05/28/2016 FINDINGS: The liver is normal in size and echotexture without focal mass or intrahepatic biliary dilatation. There is normal hepatopedal flow within the main portal vein. The gallbladder is surgically absent. The common bile duct measures 6.0 mm in maximal dimension. The visualized portions of the pancreas are unremarkable with obscuration of the tail of the pancreas. No free fluid is identified. The right kidney measures 10.1 cm in length. There is normal echogenicity within the right kidney. There is no perinephric fluid collection. No hydronephrosis, mass, or calculus is seen. IMPRESSION: 1. Previous cholecystectomy without significant biliary tree dilatation. RPTAT: AACC Physician Edwardo Date Time Electronically viewed and signed by Prakash Perez Physician on 11/18/2016 08: 54 JH/ CC: WICHO HAMEED PA-C Procedures/[facility] This a 41-year-old female who presents to the emergency department today comparing of abdominal pain that started 1 hour prior to arrival. Upon review of patient's medical records patient was seen in May of this year with acute pancreatitis. Given patient's physical exam the past medical history I did obtain laboratory work as well as a abdomen ultrasound as patient has already had her gallbladder removed Laboratory workup shows no elevated white blood cell count. Patient's hemoglobin is 8.9. Her platelets are within normal limits. Sodium is very mildly elevated otherwise electrolytes are within normal limits. Liver enzymes are elevated. Lipase is within normal limits. UA is negative for infection Urine test is negative. Ultrasound abdomen limited shows previous cholecystectomy without significant biliary tree dilatation. There is no perinephric fluid collection no hydronephrosis, mass or calculus seen. Common bile duct measures 6 mm in maximal dimension. There is no free fluid. Patient was given morphine, Zofran, Pepcid here in the emergency department and reported feeling better. Patient symptoms at this time is consistent with vomiting, diarrhea and abdominal pain possibly viral. Patient is also anemic. There is no indication for transfusion at this time. She has hypochromasia and microcytosis likely microcytic anemia she has been told in the past that she is anemic but does not take any medication for it as she states that it was difficult for her to swallow the pills. I explained to the importance of patient taking the medication. Patient will be given a prescription for iron pills, Zofran, Pepcid and Bentyl and tramadol for severe pain. At this time the patient is stable for discharge and outpatient management. Patient should follow up with their PCP in the next 1-2 days. She was given a list of resources in the area. They may return to the emergency department sooner for any persistent or worsening of symptoms. Patient understood and agreed with the plan. Departure Diagnosis: Primary Impression: Abdominal pain Abdominal location: epigastric Qualified Code: R10.13 - Epigastric pain Additional Impression: Anemia Anemia type: unspecified type Qualified Code: D64.9 - Anemia, unspecified type Condition: Fair WICHO HAMEED PA-C Nov 18, 2016 08:40
[2016-11-18 08:47] LABS: ADD SCAN DIFF NO
[2016-11-18 08:54] LABS: ABNORMAL IP MESSAGE 1; HEMATOCRIT 31.6 % (37.0-47.0); HEMOGLOBIN 8.9 g/dl (12.0-16.0); MEAN CORPUSCULAR HEMOGLOBIN 20.5 pg (29.0-33.0); MEAN CORPUSCULAR HGB CONC 28.2 g/dl (32.0-37.0); MEAN CORPUSCULAR VOLUME 72.8 fl (82.0-101.0); MEAN PLATELET VOLUME 9.2 fl (7.4-10.4); PLATELET COUNT 397 10^3/UL (140-415); RED BLOOD COUNT 4.34 10^6/ul (4.20-5.40); RED CELL DISTRIBUTION WIDTH 20.5 % (11.5-14.5); WHITE BLOOD COUNT 6.9 10^3/ul (4.8-10.8)
--- NOTE | 2016-11-18 08:54 | RADRPT ---
PROCEDURE: US Abdomen (right upper quadrant). CLINICAL INDICATION: Abdominal and epigastric pain. History of previous cholecystectomy. TECHNIQUE: Multiple real-time longitudinal and transverse images of the right upper quadrant of th e abdomen were acquired utilizing a curved array transducer. Images were reviewed on a high-resoluti on PACS workstation. COMPARISON: 05/28/2016 FINDINGS: The liver is normal in size and echotexture without focal mass or intrahepatic biliary dilatation. There is normal hepatopedal flow within the main portal vein. The gallbladder is surgically absent. The common bile duct measures 6.0 mm in maximal dimension. The visualized portions of the pancrea s are unremarkable with obscuration of the tail of the pancreas. No free fluid is identified. The right kidney measures 10.1 cm in length. There is normal echogenicity within the right kidney. There is no perinephric fluid collection. No hydronephrosis, mass, or calculus is seen. IMPRESSION: 1. Previous cholecystectomy without significant biliary tree dilatation. RPTAT: AACC Physician Edwardo Date Time Electronically viewed and signed by Physician Edwardo on 11/18/2016 08:54 /
[2016-11-18 09:12] LABS: ALBUMIN 4.4 g/dl (3.3-4.9); ALBUMIN/GLOBULIN RATIO 1.69; BILIRUBIN,INDIRECT 0.1 mg/dl (0-1.1); BILIRUBIN,TOTAL 0.1 mg/dl (0.2-1.3); CALCIUM 8.8 mg/dl (8.4-10.2); CREATININE 0.53 mg/dl (0.44-1.00); POTASSIUM 4.3 mmol/L (3.5-5.1)
[2016-11-18 09:18] LABS: ADD UMIC NO; UR AMORPHOUS CRYSTAL FEW /HPF (NONE SEEN); UR ASCORBIC ACID NEGATIVE (NEGATIVE); UR BILIRUBIN (Dip) NEGATIVE (NEGATIVE); UR BLOOD (Dip) NEGATIVE (NEGATIVE); UR CLARITY SLIGHTLY CLOUDY (CLEAR); UR COLOR YELLOW (YELLOW); UR GLUCOSE (Dip) NEGATIVE (NEGATIVE); UR KETONES (Dip) NEGATIVE (NEGATIVE); UR LEUKOCYTE ESTERASE (Dip) NEGATIVE Leu/ul (NEGATIVE); UR MUCUS FEW /HPF (NONE SEEN); UR NITRITE (Dip) NEGATIVE (NEGATIVE); UR RBC 1 /HPF (0-5); UR SPECIFIC GRAVITY (Dip) 1.024 (1.003-1.030); UR TOTAL PROTEIN (Dip) NEGATIVE (NEGATIVE); UR UROBILINOGEN (Dip) 1+ mg/dL (NEGATIVE)
[2016-11-18 09:48] LABS: BASOPHIL # 0.1 10^3/ul (0.0-0.1); EOSINOPHILS # 0.2 10^3/ul (0.0-0.5); LYMPHOCYTES # 1.9 10^3/ul (0.8-2.9); MONOCYTE # 0.2 10^3/ul (0.3-0.9); NEUTROPHIL # 4.3 10^3/ul (1.6-7.5)
[2016-11-18 09:49] LABS: HYPOCHROMASIA 1+; MICROCYTOSIS 1+; OVALOCYTES 1+
[2016-11-18] MEDS ORDERED: FAMO-96 PO (10:54)
[2016-11-18] MEDS ORDERED: ONDA4TAB8 PO (10:54)
[2016-11-18] MEDS ORDERED: FER325 PO (10:56)
[2016-11-18] MEDS ORDERED: DICY10CA60 PO (10:57)
[2016-11-18] MEDS ORDERED: TRAM50TA2 PO (10:57)
[2016-11-18 11:11] VITALS: BP 112/67; PULSE 66; RESP 20; TEMP 98.3
== END 2016-11-18 11:23 | disposition home or self-care (01) ==
LOC: FTE 07:19
DX: R10.13 Epigastric pain (principal); D64.9 Anemia, unspecified
CPT/HCPCS: 76705; 80053; 81001; 83690; 85025; J2270; J2405; Z7610; 36415; 81003; 96374; 96375

== ENCOUNTER 2017-01-27 23:40 | Emergency (ER) | payer BC ==
[~2017-01-27] VITALS: Ht 152.4 cm; Wt 69.5 kg
[~2017-01-27 23:40] MED LIST changes: +DICY10CA60 PO; +FAMO-96 PO; +FER325 PO; +ONDA4TAB8 PO; +TRAM50TA2 PO
[2017-01-27 23:46] VITALS: Ht 152.4 cm; Wt 69.5 kg
[2017-01-28] MEDS ORDERED: morphine 4 MG/ML VIAL IV STA (03:01)
[2017-01-28] MEDS ORDERED: SOD CHLORIDE 0.9% 1,000 ML IV STA (03:01)
[2017-01-28] MEDS ORDERED: ONDANSETRON 4 MG INJ IV STA (03:01)
--- NOTE | 2017-01-28 04:02 | ERD ---
ER Documentation Chief Complaint Date/Time DATE: 01/28/17 TIME: 04:00 Chief Complaint pelvic pain x 1 month and back pain x 2 days ago with n/v HPI 41-year-old female presents to emergency department for complaints of pelvic pain, right flank pain radiating to the right upper abdomen area and epigastric area that has been going on for 1 month, worse for the last 2 days. She denies history of acute pancreatitis before, started to have vomiting also today. Patient described the pain is sharp pain, 6/10 scale, not better or worse with anything. Patient did not take any medications to help with symptoms. Patient denies any fever or chills. ROS All systems reviewed and are negative except as per history of present illness. Medications Home Meds Active Scripts Tramadol HCl (Tramadol HCl) 50 Mg Tablet, 50 MG PO Q4 Y for PAIN, #15 TAB Prov:WICHO HAMEED PA-C 11/18/16 Dicyclomine Hcl* (Bentyl*) 10 Mg Capsule, 10 MG PO QID, #30 CAP Prov:WICHO HAMEED PA-C 11/18/16 Ferrous Sulfate* (Ferrous Sulfate*) 325 Mg Tabec, 325 MG PO DAILY, #30 TAB Prov:WICHO HAMEED PA-C 11/18/16 Famotidine* (Pepcid*) 20 Mg Tablet, 20 MG PO BID for 14 Days, TAB Prov:WICHO HAMEED PA-C 11/18/16 Ondansetron Hcl* (Zofran*) 4 Mg Tablet, 4 MG PO Q6H for NAUSEA AND/OR VOMITING, #30 TAB Prov:WICHO HAMEED PA-C 11/18/16 Reported Medications Multivit/Min/Fol Ac/Iron/Pren* ( S*) 1 Tab Tab, 1 TAB PO DAILY, TAB 05/28/16 Allergies Allergies: Coded Allergies: Penicillins (Verified Allergy, Unknown, Hives, 09/13/16) hives Sulfa (Sulfonamide Antibiotics) (Verified Allergy, Unknown, Hives, 09/13/16 ) Hives amoxicillin (Verified Allergy, Unknown, Rash, 09/13/16) rash cefaclor (Verified Allergy, Unknown, Rash, 09/13/16) Rash PMhx/Soc History of Surgery: Yes (leep 2006, cholecystectomy) Hx Miscellaneous Medical Probl: No Hx Alcohol Use: No Hx Substance Use: No Hx Tobacco Use: No Smoking Status: Never smoker FmHx Family History: No coronary disease, No diabetes, No other Physical Exam Vitals Vital Signs Date Time Temp Pulse Resp B/P Pulse Ox O2 Delivery O2 Flow Rate FiO2 01/27/17 23:46 98.1 94 20 119/78 100 Physical Exam GENERAL: The patient is well developed and appropriate for usual state of health, in no apparent distress. CHEST: Clear to auscultation bilaterally. There are no rales, wheezes or rhonchi. HEART: Regular rate and rhythm. No murmurs, clicks, rubs or gallops. No S3 or S4. ABDOMEN: Soft, nontender and nondistended. Good bowel sounds. No rebound or guarding. No gross peritonitis. No gross organomegaly or masses. No Viera sign or McBurney point tenderness. BACK: No midline or flank tenderness. EXTREMITIES: Equal pulses bilaterally. There is no peripheral clubbing, cyanosis or edema. No focal swelling or erythema. Full range of motion. Grossly neurovascularly intact. NEURO: Alert and oriented. Cranial nerves 2-12 intact. Motor strength in all 4 extremities with 5/5 strength. Sensation grossly intact. Normal speech and gait. SKIN: There is no apparent rash or petechia. The skin is warm and dry. HEMATOLOGIC AND LYMPHATIC: There is no evidence of excessive bruising or lymphedema. No gross cervical, axillary, or inguinal lymphadenopathy. Result Diagram: 01/28/1731401/28/175 Results 24 hrs Laboratory Tests Test 01/28/17 03:15 White Blood Count 7.410^3/ul Red Blood Count 5.0210^6/ul Hemoglobin 11.7g/dl Hematocrit 39.0% Mean Corpuscular Volume 77.7fl Mean Corpuscular Hemoglobin 23.3pg Mean Corpuscular Hemoglobin Concent 30.0g/dl Red Cell Distribution Width 20.8% Platelet Count 62984^3/UL Mean Platelet Volume 10.0fl Neutrophils % 42.2% Lymphocytes % 45.6% Monocytes % 9.3% Eosinophils % 2.0% Basophils % 0.8% Nucleated Red Blood Cells % 0.0/100WBC Neutrophils # 3.110^3/ul Lymphocytes # 3.410^3/ul Monocytes # 0.710^3/ul Eosinophils # 0.210^3/ul Basophils # 0.110^3/ul Nucleated Red Blood Cells # 0.010^3/ul Urine Color STRAW Urine Clarity CLEAR Urine pH 5.0 Urine Specific [place] 1.009 Urine Ketones NEGATIVEmg/dL Urine Nitrite NEGATIVEmg/dL Urine Bilirubin NEGATIVEmg/dL Urine Urobilinogen NEGATIVEmg/dL Urine Leukocyte Esterase NEGATIVELeu/ul Urine Hemoglobin NEGATIVEmg/dL Urine Glucose NEGATIVEmg/dL Urine Total Protein NEGATIVEmg/dl Urine Test NEGATIVE Sodium Level 141mmol/L Potassium Level 3.9mmol/L Chloride Level 104mmol/L Carbon Dioxide Level 28mmol/L Anion Gap 13 Blood Urea Nitrogen 15mg/dl Creatinine 0.48mg/dl Glucose Level 84mg/dl Calcium Level 9.5mg/dl Total Bilirubin 0.0mg/dl Direct Bilirubin 0.00mg/dl Indirect Bilirubin 0.0mg/dl Aspartate Amino Transf (AST/SGOT) 24IU/L Alanine Aminotransferase (ALT/SGPT) 41IU/L Alkaline Phosphatase 133IU/L Total Protein 8.3g/dl Albumin 4.6g/dl Globulin 3.70g/dl Albumin/Globulin Ratio 1.24 Lipase 123U/L Current Medications Medications (Trade) Dose Ordered Sig/Amadeo Route PRN Reason Start Time Stop Time Status Last Admin Dose Admin Sodium Chloride (NS) 1,000 ml @ 1,000 mls/hr Q1H STAT IV 01/28/17 03:01 01/28/17 04:00 DC 01/28/17 03:13 Morphine Sulfate (morphine) 4 mg ONCE STAT IV 01/28/17 03:01 01/28/17 03:03 DC 01/28/17 03:12 Ondansetron HCl (Zofran Inj) 4 mg ONCE STAT IV 01/28/17 03:01 01/28/17 03:03 DC 01/28/17 03:12 Patient was given medication for pain here in emergency department, after treatment, patient verbalized feeling much better. Patient's pain is improved. Patient was given Zofran here in the emergency department. After treatment, patient was able to tolerate po fluids here in the emergency department without any vomiting. There is no signs and symptoms of dehydration. Normal saline IV bolus was given here in emergency department for rehydration, patient tolerated IV fluids. PROCEDURE: CT ABDOMEN/PELVIS WITHOUT CONTRAST CLINICAL INDICATION: 41-year-old female with abdominal pain. TECHNIQUE: The study was performed utilizing a GE [employer] VCT 64-slice CT scanner. Direct axial sections were obtained through the abdomen and pelvis without the use of intravenous contrast material. Sagittal and coronal reformations were obtained. One or more of the following dose reduction techniques were utilized: automated exposure control, adjustment of the mA and/ or kV according to patient's size or use of iterative reconstruction technique. The images were reviewed on a PACS workstation. CTD/vol = 13.7 mGy; Total Exam DLP = 775.2 mGy-cm. COMPARISON: Right upper quadrant ultrasound November 18, 2016. FINDINGS: The lung bases are unremarkable. There is no evidence for significant pleural effusion. The liver has a normal size and contour without focal areas of abnormal density. No intrahepatic nor extrahepatic biliary ductal dilatation is seen. Surgical clips are seen within the gallbladder fossa from prior cholecystectomy. pancreas is without areas of abnormal attenuation. The spleen is identified and has a normal size without abnormal density. The adrenal glands are unremarkable. There are small punctate nonobstructing right renal calculi. There is a nonobstructing left lower pole renal calculus measuring approximately 3 x 9 x 3 mm. There are a couple small nonobstructing left mid renal calculi measuring approximately 3 x 3 mm. There is no evidence for hydroureteronephrosis. The urinary bladder contains urine. There is mild retained stool identified within the colon without obstruction. The appendix is visualized and is without abnormal thickening or surrounding inflammatory reaction. The uterus is anteflexed. There is no significant free fluid. Shotty mesenteric lymph nodes are present. The aortoiliac vessels are without aneurysmal dilatation. The osseous structures are intact. IMPRESSION: 1. Status post cholecystectomy. 2. Bilateral nonobstructing renal calculi more prominently on the left side. 3. Mild retained stool without evidence for obstruction. 4. No CT evidence for appendicitis. .Jayden Sanz MD, Date Time Electronically viewed and signed by .Jayden Sanz MD, MD on 01/28/2017 05:42 .M/ CC: OSKAR ESPANA NP Procedures/MDM Medical Decision Making: Symptoms of abdominal pain nonspecific at this time, can be musculoskeletal pain, could be viral. No leukocytosis, no bandemia. There is low suspicion for abdominal emergencies at this time. Patients abdominal exam is normal at this time. Patients radiology exam does not show any abdominal emergencies at this time. There is low suspicion for appendicitis , cholecystitis, abdominal aortic aneurysms or peritonitis at this time. There is low suspicion for sepsis. Patient appears well and is hemodynamically stable. Disposition: Home. Condition: Stable Prescription Willis, Zofran, Instructions: Patient is advised to take medications as prescribed. Patient is advised to rest, increase fluid intake and do brat diet for next 1-2 days and progress as tolerated. Patient is advised that if symptoms are worse, severe abdominal pain, uncontrolled vomiting, high fever, severe flank pain, worst signs and symptoms, to return to the emergency department immediately. Otherwise, patient can follow up with primary care doctor in 5-7 days. Disclaimer: Inadvertent spelling and grammatical errors are likely due to EHR/ dictation software use and do not reflect on the overall quality of patient care. Also, please note that the electronic time recorded on this note does not necessarily reflect the actual time of the patient encounter. Departure Diagnosis: Primary Impression: Abdominal pain Abdominal location: generalized Qualified Code: R10.84 - Generalized abdominal pain Condition: Stable Patient Instructions: Abdominal Pain Additional Instructions: Patient is advised to take medications as prescribed. Patient is advised to rest , increase fluid intake and do brat diet for next 1-2 days and progress as tolerated. Patient is advised that if symptoms are worse, severe abdominal pain , uncontrolled vomiting, high fever, severe flank pain, worst signs and symptoms , to return to the emergency department immediately. Otherwise, patient can follow up with primary care doctor in 5-7 days. OSKAR ESPANA NP Jan 28, 2017 04:02
[2017-01-28 04:10] LABS: ADD UMIC NO; UR ASCORBIC ACID NEGATIVE (NEGATIVE); UR BILIRUBIN (Dip) NEGATIVE (NEGATIVE); UR BLOOD (Dip) NEGATIVE (NEGATIVE); UR CLARITY CLEAR (CLEAR); UR COLOR STRAW (YELLOW); UR GLUCOSE (Dip) NEGATIVE (NEGATIVE); UR KETONES (Dip) NEGATIVE (NEGATIVE); UR LEUKOCYTE ESTERASE (Dip) NEGATIVE Leu/ul (NEGATIVE); UR NITRITE (Dip) NEGATIVE (NEGATIVE); UR SPECIFIC GRAVITY (Dip) 1.009 (1.003-1.030); UR TOTAL PROTEIN (Dip) NEGATIVE (NEGATIVE); UR UROBILINOGEN (Dip) NEGATIVE (NEGATIVE)
[2017-01-28 04:11] LABS: ALBUMIN 4.6 g/dl (3.3-4.9); ALBUMIN/GLOBULIN RATIO 1.24; CALCIUM 9.5 mg/dl (8.4-10.2); CREATININE 0.48 mg/dl (0.44-1.00); POTASSIUM 3.9 mmol/L (3.5-5.1); TOTAL PROTEIN 8.3 g/dl (6.1-8.1)
[2017-01-28 04:19] LABS: BASOPHIL # 0.1 10^3/ul (0.0-0.1); BASOPHILS % 0.8 % (0.0-2.0); EOSINOPHILS # 0.2 10^3/ul (0.0-0.5); HEMOGLOBIN 11.7 g/dl (12.0-16.0); LYMPHOCYTES # 3.4 10^3/ul (0.8-2.9); LYMPHOCYTES % 45.6 % (15.0-51.0); MEAN CORPUSCULAR HEMOGLOBIN 23.3 pg (29.0-33.0); MEAN CORPUSCULAR VOLUME 77.7 fl (82.0-101.0); MONOCYTE # 0.7 10^3/ul (0.3-0.9); MONOCYTES % 9.3 % (0.0-11.0); NEUTROPHIL # 3.1 10^3/ul (1.6-7.5); NEUTROPHILS % 42.2 % (39.0-77.0); PLATELET COUNT 351 10^3/UL (140-415); RED BLOOD COUNT 5.02 10^6/ul (4.20-5.40); RED CELL DISTRIBUTION WIDTH 20.8 % (11.5-14.5); WHITE BLOOD COUNT 7.4 10^3/ul (4.8-10.8)
--- NOTE | 2017-01-28 05:42 | RADRPT ---
PROCEDURE: CT ABDOMEN/PELVIS WITHOUT CONTRAST CLINICAL INDICATION: 41-year-old female with abdominal pain. TECHNIQUE: The study was performed utilizing a GE [employer] VCT 64-slice CT scanner. Direct axia l sections were obtained through the abdomen and pelvis without the use of intravenous contrast mate rial. Sagittal and coronal reformations were obtained. One or more of the following dose reduction t echniques were utilized: automated exposure control, adjustment of the mA and/or kV according to pat ient's size or use of iterative reconstruction technique. The images were reviewed on a PACS workst [employer]. CTD/vol = 13.7 mGy; Total Exam DLP = 775.2 mGy-cm. COMPARISON: Right upper quadrant ultrasound November 18, 2016. FINDINGS: The lung bases are unremarkable. There is no evidence for significant pleural effusion. The liver has a normal size and contour without focal areas of abnormal density. No intrahepatic nor extrahepa tic biliary ductal dilatation is seen. Surgical clips are seen within the gallbladder fossa from [place] or cholecystectomy. pancreas is without areas of abnormal attenuation. The spleen is identified and has a normal size without abnormal density. The adrenal glands are unremarkable. There are small pu nctate nonobstructing right renal calculi. There is a nonobstructing left lower pole renal calculus measuring approximately 3 x 9 x 3 mm. There are a couple small nonobstructing left mid renal calculi measuring approximately 3 x 3 mm. There is no evidence for hydroureteronephrosis. The urinary bladd er contains urine. There is mild retained stool identified within the colon without obstruction. Th e appendix is visualized and is without abnormal thickening or surrounding inflammatory reaction. The uterus is anteflexed. There is no significant free fluid. Shotty mesenteric lymph nodes are pres ent. The aortoiliac vessels are without aneurysmal dilatation. The osseous structures are intact. IMPRESSION: 1. Status post cholecystectomy. 2. Bilateral nonobstructing renal calculi more prominently on the left side. 3. Mild retained stool without evidence for obstruction. 4. No CT evidence for appendicitis. .Jayden Sanz MD, Date Time Electronically viewed and signed by .Jayden Sanz MD, on 01/28/2017 05:42 .[place]
[2017-01-28] MEDS ORDERED: ONDA4TAB14 PO (05:51)
[2017-01-28] MEDS ORDERED: HYDR-906 PO (05:51)
[2017-01-28 05:57] VITALS: BP 128/79; PULSE 78; RESP 18; TEMP 98.1
== END 2017-01-28 05:59 | disposition home or self-care (01) ==
LOC: FTE 23:40
DX: R10.84 Generalized abdominal pain (principal); R11.2 Nausea with vomiting, unspecified
CPT/HCPCS: 36415; 74176; 80053; 81003; 83690; 84703; 85025; 96374; 96375; J2270; J2405; J7030; Z7502

== ENCOUNTER 2017-06-26 21:53 | Emergency (ER) | END 2017-06-27 | disposition left against medical advice (07) ==

== ENCOUNTER 2017-08-01 16:08 | Emergency (ER) | END 2017-08-01 19:50 | disposition left against medical advice (07) ==

== ENCOUNTER 2017-11-05 07:32 | Emergency (ER) | END 2017-11-05 08:44 | disposition home or self-care (01) ==

== ENCOUNTER 2017-12-06 23:56 | Emergency (ER) | END 2017-12-07 03:00 | disposition home or self-care (01) ==

== ENCOUNTER 2018-02-12 19:52 | Emergency (ER) | END 2018-02-12 22:54 | disposition home or self-care (01) ==

== ENCOUNTER 2018-04-25 12:33 | Emergency (ER) | END 2018-04-25 15:46 | disposition home or self-care (01) ==

== ENCOUNTER 2018-06-23 13:06 | Emergency (ER) | payer SELFPAY ==
[~2018-06-23] VITALS: Ht 152.4 cm; Wt 74.3 kg
[~2018-06-23 13:06] MED LIST changes: +BEN25 PO; +CETI10CA PO; +DICY10CA40 PO; -DICY10CA60 PO; +DOCU-144 PO; +HYDR-4011 PO; +IBUP-1542 PO; +NAPR-985 PO; +OMEP20CA16 PO; +ONDA4TAB14 PO; +ONDA8TAB14 PO; +PRED20TA PO
[2018-06-23 13:51] VITALS: BP 117/72; PULSE 101; RESP 18; Ht 152.4 cm; Wt 74.3 kg
== END 2018-06-23 16:54 | disposition left against medical advice (07) ==
LOC: FTE 13:06
DX: Z53.21 Procedure and treatment not carried out due to patient leaving prior to being seen by health care provider (principal)

== ENCOUNTER 2018-11-06 15:08 | Emergency (ER) | payer OTHER ==
[~2018-11-06] VITALS: Ht 165.1 cm; Wt 75.0 kg
[2018-11-06 15:15] VITALS: Ht 165.1 cm; Wt 75.0 kg
--- NOTE | 2018-11-06 16:10 | ERD ---
ER Documentation Chief Complaint Chief Complaint RT sided flank pain sharp/burning 02/11 started suddenly HPI 43-year-old female with a history of hiatal hernia and pancreatitis presenting with epigastric pain radiating to her back that started earlier today. She describes it as sharp and burning, radiating up the center of her chest. The pain is constant. No alleviating or exacerbating factors. She has nausea but no vomiting. No melena or hematochezia. No fevers or chills. No shortness of breath. ROS All systems reviewed and are negative except as per history of present illness. Medications Home Meds Active Scripts Famotidine* (Pepcid*) 20 Mg Tablet, 20 MG PO BID for 10 Days, TAB Prov:BAR OLIVER MD 11/06/18 Discontinued Reported Medications Multivit/Min/Fol Ac/Iron/Pren* ( S*) 1 Tab Tab, 1 TAB PO DAILY, TAB 05/28/16 Discontinued Scripts Diphenhydramine Hcl* (Benadryl*) 25 Mg Cap, 25 MG PO QHS, #7 CAP Prov:EUGENE LUCIO PA-C 04/25/18 Prednisone* (Prednisone*) 20 Mg Tab, 40 MG PO DAILY for 4 Days, TAB Prov:EUGENE LUCIO PA-C 04/25/18 Cetirizine Hcl* (Zyrtec*) 10 Mg Capsule, 10 MG PO DAILY, #10 TAB.CHEW Prov:EUGENE LUCIO PA-C 04/25/18 Docusate Sodium* (Colace*) 100 Mg Capsule, 100 MG PO TID, #30 CAP Prov:SUZANNA FAM PA-C 02/12/18 Ferrous Sulfate* (Ferrous Sulfate*) 325 Mg Tabec, 325 MG PO DAILY, #30 TAB Prov:SUZANNA FAM PA-C 02/12/18 Omeprazole* (Omeprazole*) 20 Mg Capsule.dr, 20 MG PO DAILY, #14 Prov:SUZANNA FAM PA-C 02/12/18 Famotidine* (Pepcid*) 20 Mg Tablet, 20 MG PO QHS for 5 Days, TAB Prov:SUZANNA FAM PA-C 02/12/18 Ondansetron (Ondansetron Odt) 8 Mg Tab.rapdis, 8 MG PO Q6H PRN for NAUSEA AND/OR VOMITING, #20 TAB Prov:SUZANNA FAM PA-C 02/12/18 Docusate Sodium* (Colace*) 100 Mg Capsule, 100 MG PO TID, #30 CAP Prov:EUGENE LUCIO PA-C 12/07/17 Ferrous Sulfate* (Ferrous Sulfate*) 325 Mg Tabec, 325 MG PO BID, #30 TAB Prov:EUGENE LUCIO PA-C 12/07/17 Ibuprofen* (Motrin*) 600 Mg Tab, 600 MG PO Q6, #30 TAB Prov:EUGENE LUCIO PA-C 12/07/17 Naproxen* (Naprosyn*) 500 Mg Tablet, 500 MG PO BID PRN for PAIN AND/OR INFLAMMATION, #30 TAB Prov:KALEB JORGENSEN PA-C 11/05/17 Hydrocodone/Acetaminophen ([place] 5-325 Tablet) 1 Each Tablet, 1 TAB PO Q6H PRN for PAIN, #7 TAB Prov:KALEB JORGENSEN PA-C 11/05/17 Prednisone* (Prednisone*) 20 Mg Tab, 40 MG PO DAILY for 4 Days, TAB Prov:KALEB JORGENSEN PA-C 11/05/17 Ondansetron (Ondansetron Odt) 4 Mg Tab.rapdis, 4 MG PO Q8 PRN for NAUSEA AND/OR VOMITING, #30 TAB Prov:OSKAR ESPANA NP 01/28/17 Hydrocodone/Acetaminophen ([place] 5-325 Tablet) 1 Each Tablet, 1 TAB PO Q6H PRN for PAIN, #20 TAB Prov:OSKAR ESPANA NP 01/28/17 Tramadol HCl (Tramadol HCl) 50 Mg Tablet, 50 MG PO Q4 PRN for PAIN, #15 TAB Prov:WICHO HAMEED PA-C 11/18/16 Dicyclomine HCl (Dicyclomine HCl) 10 Mg Capsule, 10 MG PO QID, #30 CAP Prov:WICHO HAMEED PA-C 11/18/16 Ferrous Sulfate* (Ferrous Sulfate*) 325 Mg Tabec, 325 MG PO DAILY, #30 TAB Prov:ZARIEBONYWICHOYADI Garcia PA-C 11/18/16 Famotidine* (Pepcid*) 20 Mg Tablet, 20 MG PO BID for 14 Days, TAB Prov:ZARIWICHO Garcia PA-C 11/18/16 Ondansetron Hcl* (Zofran*) 4 Mg Tablet, 4 MG PO Q6H for NAUSEA AND/OR VOMITING, #30 TAB Prov:ZARIWICHO Garcia PA-C 11/18/16 Allergies Allergies: Coded Allergies: Penicillins (Verified Allergy, Unknown, Hives, 11/06/18) hives Sulfa (Sulfonamide Antibiotics) (Verified Allergy, Unknown, Hives, 11/06/18) Hives amoxicillin (Verified Allergy, Unknown, Rash, 11/06/18) rash cefaclor (Verified Allergy, Unknown, Rash, 11/06/18) Rash PMhx/Soc History of Surgery: Yes (leep 2006, cholecystectomy, ) Hx Respiratory Disorders: Yes (Asthma) Hx Miscellaneous Medical Probl: Yes (ESOPHAGEAL HERNIA, RA, pancreatitis) Hx Alcohol Use: No Hx Substance Use: No Hx Tobacco Use: Yes FmHx Family History: No diabetes Physical Exam Vitals Vital Signs Date Temp Pulse Resp B/P (MAP) Pulse Ox O2 O2 Flow FiO2 Time Delivery Rate 11/06/18 98.2 68 16 121/91 98 Room Air 18:07 (101) 11/06/18 98.1 86 20 139/92 100 15:15 (108) Physical Exam Const: No acute distress Head: Atraumatic Eyes: Normal Conjunctiva ENT: Normal External Ears, Nose and Mouth. Neck: Full range of motion. No meningismus. Resp: Clear to auscultation bilaterally Cardio: Regular rate and rhythm, no murmurs. 2+ distal pulses in all 4 extremities Abd: Soft, mild epigastric tenderness with no rebound or guarding. Non distended. Normal bowel sounds Skin: No petechiae or rashes Back: No midline or flank tenderness Ext: No cyanosis, or edema Neur: Awake and alert Psych: Normal Mood and Affect Result Diagram: 11/06/18 1615 11/06/18 1615 Results 24 hrs Laboratory Tests Test 11/06/18 15:53 11/06/18 15:59 11/06/18 16:00 11/06/18 16:15 Urine Color YELLOW Urine Clarity CLOUDY Urine pH 5.0 Urine Specific 1.026 [place] Urine Ketones NEGATIVE mg/dL Urine Nitrite NEGATIVE mg/dL Urine Bilirubin NEGATIVE mg/dL Urine Urobilinogen NEGATIVE mg/dL Urine Leukocyte TRACE Jan/ul Esterase Urine Microscopic 4 /HPF RBC Urine Microscopic 12 /HPF WBC Urine Squamous MODERATE /HPF Epithelial Cells Urine Mucus MANY /HPF Urine Hemoglobin NEGATIVE mg/dL Urine Glucose NEGATIVE mg/dL Urine Total Protein NEGATIVE mg/dl Bedside Urine pH 6.0 (LAB) Bedside Urine Trace Protein (LAB) Bedside Urine Negative Glucose (UA) Bedside Urine Negative Ketones (LAB) Bedside Urine Blood Negative Bedside Urine Negative Nitrite (LAB) Bedside Urine Negative Leukocyte Esterase (L POC Beta HCG, NEGATIVE Qualitative White Blood Count 7.7 10^3/ul Red Blood Count 4.65 10^6/ul Hemoglobin 11.5 g/dl Hematocrit 36.8 % Mean Corpuscular 79.1 fl Volume Mean Corpuscular 24.7 pg Hemoglobin Mean Corpuscular 31.3 g/dl Hemoglobin Concent Red Cell 16.2 % Distribution Width Platelet Count 315 10^3/UL Mean Platelet 9.6 fl Volume Immature 0.300 % Granulocytes % Neutrophils % 58.5 % Lymphocytes % 28.9 % Monocytes % 9.6 % Eosinophils % 1.8 % Basophils % 0.9 % Nucleated Red Blood 0.0 /100WBC Cells % Immature 0.020 10^3/ul Granulocytes # Neutrophils # 4.5 10^3/ul Lymphocytes # 2.2 10^3/ul Monocytes # 0.7 10^3/ul Eosinophils # 0.1 10^3/ul Basophils # 0.1 10^3/ul Nucleated Red Blood 0.0 10^3/ul Cells # Sodium Level 142 mmol/L Potassium Level 3.4 mmol/L Chloride Level 107 mmol/L Carbon Dioxide 23 mmol/L Level Anion Gap 12 Blood Urea Nitrogen 10 mg/dl Creatinine 0.49 mg/dl Est Glomerular > 60 mL/min Filtrat Rate mL/min Glucose Level 72 mg/dl Calcium Level 9.0 mg/dl Total Bilirubin 0.2 mg/dl Direct Bilirubin 0.00 mg/dl Indirect Bilirubin 0.2 mg/dl Aspartate Amino 47 IU/L Transf (AST/SGOT) Alanine 21 IU/L Aminotransferase (A LT/SGPT) Alkaline 120 IU/L Phosphatase Troponin I < 0.012 ng/ml Total Protein 7.5 g/dl Albumin 4.1 g/dl Globulin 3.40 g/dl Albumin/Globulin 1.20 Ratio Lipase 89 U/L Ethyl Alcohol Level < 10.0 mg/dl Current Medications Medications Dose Sig/Amadeo Start Time Status Last (Trade) Ordered Route PRN Stop Time Admin Dose Reason Admin Sodium 1,000 ml @ Q1H STAT 11/06/18 DC 11/06/18 Chloride 1,000 mls/hr IV 16:13 11/06/18 16:59 17:12 Morphine 2 mg ONCE STAT 11/06/18 DC 11/06/18 Sulfate IV 16:13 11/06/18 16:59 (morphine) 16:14 Ondansetron 4 mg ONCE STAT 11/06/18 DC 11/06/18 HCl (Zofran IV 16:13 11/06/18 16:59 Inj) 16:14 Famotidine 20 mg ONCE STAT 11/06/18 DC 11/06/18 (Pepcid) PO 17:14 11/06/18 17:22 17:15 40 ml ONCE STAT 11/06/18 DC 11/06/18 Miscellaneous PO 17:14 11/06/18 17:22 Medication 17:15 (Gi Cocktail (2)) Procedures/MDM EMERGENT LABS AND DIAGNOSTIC STUDIES: Lab Results above were reviewed and interpreted by me. CBC: no anemia or evidence of infection CMP: No evidence of clinically significant electrolyte abnormality, acidosis, renal failure, hypoglycemia, liver disease, or biliary obstruction Lipase: no evidence of pancreatitis Troponin within normal limits, not indicative of cardiac ischemia UA: no evidence of infection 12-lead EKG was interpreted by Stefania Oliver MD: Normal Sinus Rhythm Normal axis Normal intervals No acute ST or T wave changes suggestive of acute ischemia or STEMI. Radiology Results as interpreted by Radiology below were reviewed by Ash Oliver MD: Chest x-ray shows no acute abnormalities Initial Nursing notes reviewed. Previous Medical Records requested via the Electronic Health Record. EMERGENCY DEPARTMENT COURSE / MEDICAL DECISION MAKING: Patient is presenting with epigastric pain radiating to the back. Vitals are unremarkable. Differential includes but is not limited to biliary colic, biliary obstruction, acute cholecystitis, pancreatitis, hepatitis, lower lobe pneumonia, gastritis, colitis, cardiac pathology, aortic dissection, ureterolithiasis, pyelonephritis. Labs were ordered to evaluate for above and were unremarkable. Chest Xray ordered to evaluate for pneumonia and [was read as normal by radiology]. Imaging of the abdomen was considered but I have a low suspicion for acute surgical abdomen. I do not feel that abdominal imaging is necessary. Patient treated with GI cocktail with improvement of her symptoms. Prescription given for Pepcid. Follow-up with PCP recommended within the next few days. Return precautions discussed. Advised to return for any worsening symptoms over the next 8 to 12 hours. Patient's blood pressure was elevated (>120/80) but appears stable without ev idence of hypertensive emergency or urgency. The patient was counseled about the risks of hypertension and urged to pursue outpatient monitoring and therapy within a week with their primary care physician. Departure Diagnosis: Primary Impression: Epigastric pain Condition: Stable BAR OLIVER MD Nov 06, 2018 16:10
[2018-11-06] MEDS ORDERED: SOD CHLORIDE 0.9% 1,000 ML IV STA (16:13)
[2018-11-06] MEDS ORDERED: morphine 2 MG INJ IV STA (16:13)
[2018-11-06] MEDS ORDERED: ONDANSETRON 4 MG INJ IV STA (16:13)
[2018-11-06] MEDS ORDERED: FAMO-96 PO (17:01)
[2018-11-06] MEDS ORDERED: FAMOTIDINE 20 MG TAB PO STA (17:14)
[2018-11-06] MEDS ORDERED: LIDOCAINE/MYLANTA 40 ML BTL PO STA (17:14)
[2018-11-06 18:07] VITALS: BP 121/91; PULSE 68; RESP 16
== END 2018-11-06 18:10 | disposition home or self-care (01) ==
LOC: E/R 15:08
DX: R10.13 Epigastric pain (principal)
CPT/HCPCS: 36415; 71045; 80053; 80307; 81001; 81003; 81025; 83690; 84484; 85025; 87086; 96374; 96375; J2270; J2405; J7030; Z7502; Z7610; 93005

== ENCOUNTER 2019-02-24 19:23 | Emergency (ER) | payer SELFPAY ==
[~2019-02-24] VITALS: Ht 154.9 cm; Wt 63.5 kg
[~2019-02-24 19:23] MED LIST changes: -BEN25 PO; -CETI10CA PO; -DICY10CA40 PO; -DOCU-144 PO; -FER325 PO; -HYDR-4011 PO; -NAPR-985 PO; -OMEP20CA16 PO; -ONDA4TAB14 PO; -ONDA4TAB8 PO; -ONDA8TAB14 PO; -PRED20TA PO; -PRENAT PO; -TRAM50TA2 PO
[2019-02-24 19:47] VITALS: BP 147/95; PULSE 95; RESP 22; Ht 154.9 cm; Wt 63.5 kg
== END 2019-02-24 23:46 | disposition left against medical advice (07) ==
LOC: FTE 19:23
DX: Z53.21 Procedure and treatment not carried out due to patient leaving prior to being seen by health care provider (principal)

== ENCOUNTER 2019-02-24 21:42 | Emergency (ER) | payer MEDICAID, OTHER ==
[~2019-02-24] VITALS: Ht 180.3 cm; Wt 63.6 kg
[2019-02-24 21:46] VITALS: BP 145/97; PULSE 98; RESP 20; Ht 180.3 cm; Wt 63.6 kg
[2019-02-25] MEDS ORDERED: IBUPROFEN 600 MG TAB PO ONE
== END 2019-02-24 23:59 | disposition home or self-care (01) ==
LOC: FTE 21:42
DX: R10.84 Generalized abdominal pain (principal); J45.909 Unspecified asthma, uncomplicated; F17.210 Nicotine dependence, cigarettes, uncomplicated
CPT/HCPCS: 81025; Z7502; Z7610; 99282